=== PATIENT | female | born 1970 ===

== ENCOUNTER 2019-12-16 18:47 | Emergency (ER) | payer OTHER ==
[~2019-12-16] VITALS: Ht 170.2 cm; Wt 68.2 kg
[2019-12-16] MEDS ORDERED: BUPR1FIL5 SL (19:17)
[2019-12-16 20:31] VITALS: BP 110/70
== END 2019-12-16 22:00 | disposition home or self-care (01) ==
LOC: EMS 18:48
DX: Z20.828 Contact with and (suspected) exposure to other viral communicable diseases (principal); R53.83 Other fatigue; R51 Headache; R11.0 Nausea; F17.210 Nicotine dependence, cigarettes, uncomplicated; F11.90 Opioid use, unspecified, uncomplicated
CPT/HCPCS: 99283; 99406; U0003